=== PATIENT | female | born 1930 | race Caucasian/White ===

== ENCOUNTER 2018-10-16 12:27 | Emergency (ER) | payer OTHER ==
[~2018-10-16] VITALS: Ht 152.4 cm; Wt 62.1 kg
[2018-10-16] MEDS ORDERED: MIRALAX17 GM PO (12:45)
[2018-10-16] MEDS ORDERED: FLOVENT HFA 4444 MCG INH (12:45)
[2018-10-16] MEDS ORDERED: CITRACAL + D E1 EACH PO (12:46)
[2018-10-16] MEDS ORDERED: SPIRONOLACTONE25 M1 PO (12:46)
[2018-10-16] MEDS ORDERED: VITAMIN D3400 UNIT PO (12:46)
[2018-10-16] MEDS ORDERED: FISH OIL 1,001000 M2 PO (12:47)
[2018-10-16] MEDS ORDERED: IPRATROPIUM BRO30 ML (12:47)
[2018-10-16] MEDS ORDERED: IRON325 PO (12:47)
[2018-10-16] MEDS ORDERED: MYRBETRIQ50 MG PO (12:48)
[2018-10-16] MEDS ORDERED: MAGOX 400400 MG PO (12:48)
[2018-10-16] MEDS ORDERED: SYNTHROID88 MCG PO (12:49)
[2018-10-16] MEDS ORDERED: ZANTAC 150MG T150 MG PO (12:49)
[2018-10-16] MEDS ORDERED: ASPIR 8181 MG PO (12:49)
[2018-10-16] MEDS ORDERED: PROAIR HFA8.5 GM INH (12:50)
[2018-10-16] MEDS ORDERED: AUGMENTIN 500-1 EACH PO (14:33)
[2018-10-16] MEDS ORDERED: MUPIROCIN15 GM TOP (14:42)
[2018-10-16 14:51] VITALS: BP 171/78
== END 2018-10-16 14:52 | disposition home or self-care (01) ==
LOC: M.ERS 12:27
DX: S51.011A Laceration without foreign body of right elbow, initial encounter (principal); S16.1XXA Strain of muscle, fascia and tendon at neck level, initial encounter; S00.03XA Contusion of scalp, initial encounter; M25.561 Pain in right knee; M25.551 Pain in right hip; M25.521 Pain in right elbow; W01.198A Fall on same level from slipping, tripping and stumbling with subsequent striking against other object, initial encounter; Y92.094 Garage of other non-institutional residence as the place of occurrence of the external cause; Y93.89 Activity, other specified; Y99.8 Other external cause status

== ENCOUNTER 2018-12-16 18:48 | Emergency (ER) | payer OTHER ==
[~2018-12-16] VITALS: Ht 152.4 cm; Wt 62.1 kg
[~2018-12-16 18:48] MED LIST: ASPIR 8181 MG PO; AUGMENTIN 500-1 EACH PO; CITRACAL + D E1 EACH PO; FISH OIL 1,001000 M2 PO; FLOVENT HFA 4444 MCG INH; IPRATROPIUM BRO30 ML; IRON325 PO; MAGOX 400400 MG PO; MIRALAX17 GM PO; MUPIROCIN15 GM TOP; MYRBETRIQ50 MG PO; PROAIR HFA8.5 GM INH; SPIRONOLACTONE25 M1 PO; SYNTHROID88 MCG PO; VITAMIN D3400 UNIT PO; ZANTAC 150MG T150 MG PO
[2018-12-16 20:20] VITALS: BP 149/68
== END 2018-12-16 20:20 | disposition home or self-care (01) ==
LOC: M.ERS 18:48
DX: S51.012A Laceration without foreign body of left elbow, initial encounter (principal); S80.01XA Contusion of right knee, initial encounter; S80.212A Abrasion, left knee, initial encounter; M25.462 Effusion, left knee; I10 Essential (primary) hypertension; Z88.1 Allergy status to other antibiotic agents; Z88.8 Allergy status to other drugs, medicaments and biological substances; Z88.0 Allergy status to penicillin; Z88.2 Allergy status to sulfonamides; W18.39XA Other fall on same level, initial encounter; Y92.89 Other specified places as the place of occurrence of the external cause; Y93.89 Activity, other specified; Y99.8 Other external cause status